=== PATIENT | female | born 2000 | race Caucasian/White ===

== ENCOUNTER 2024-01-14 11:36 | Outpatient (CLI) | payer OTHER | END 2024-01-14 11:37 | disposition home or self-care (01) | LOC: CSHRAD 11:36 | PROVIDERS: ATTEND Chiropractor | DX: M19.021 Primary osteoarthritis, right elbow (principal); M19.022 Primary osteoarthritis, left elbow; M19.041 Primary osteoarthritis, right hand; M19.042 Primary osteoarthritis, left hand; M19.071 Primary osteoarthritis, right ankle and foot; M19.072 Primary osteoarthritis, left ankle and foot; M16.0 Bilateral primary osteoarthritis of hip ==